=== PATIENT | female | born 1990 ===

== ENCOUNTER 2022-05-29 09:15 | Outpatient (CLI) | payer OTHER | END 2022-05-29 10:45 | disposition home or self-care (01) | LOC: PRENATAL 09:15 | PROVIDERS: ATTEND Obstetrics & Gynecology Maternal & Fetal Medicine | DX: O35.9XX0 Maternal care for (suspected) fetal abnormality and damage, unspecified, not applicable or unspecified (principal); O35.3XX0 Maternal care for (suspected) damage to fetus from viral disease in mother, not applicable or unspecified; Z3A.23 23 weeks gestation of pregnancy ==

== ENCOUNTER 2022-09-18 07:11 | Inpatient (IN) | payer OTHER ==
[~2022-09-18] VITALS: Ht 167.6 cm; Wt 66.7 kg
[2022-09-18] MEDS ORDERED: PRENATAL TABLE1 EAC1 PO (09:20)
[2022-09-18] MEDS ORDERED: IRON325 MG PO (09:21)
[2022-09-18] MEDS ORDERED: CETIRIZINE1 MG/1 ML PO (09:22)
== END 2022-09-20 13:00 | disposition home or self-care (01) | DRG 807 ==
LOC: OB/GYN 07:11 → LDR 07:11 → OB/GYN 17:54
PROVIDERS: ADMIT Obstetrics & Gynecology; ATTEND Obstetrics & Gynecology
PROC: 10E0XZZ Delivery of Products of Conception, External Approach (ICD-10-PCS; principal; 2022-09-18)
PROC: 0KQM0ZZ Repair Perineum Muscle, Open Approach (ICD-10-PCS; 2022-09-18)
PROC: 4A1HXCZ Monitoring of Products of Conception, Cardiac Rate, External Approach (ICD-10-PCS; 2022-09-18)
DX: O70.1 Second degree perineal laceration during delivery (principal); Z37.0 Single live birth; Z3A.39 39 weeks gestation of pregnancy; Z20.822 Contact with and (suspected) exposure to COVID-19